=== PATIENT | male | born 1990 | race Hispanic/Latino ===

== ENCOUNTER 2022-08-13 23:08 | Emergency (ER) | payer BC ==
[~2022-08-13] VITALS: Ht 172.7 cm; Wt 117.5 kg
[2022-08-14 00:13] VITALS: BP 110/67
[2022-08-14 00:18] LABS: BASOPHILS % (AUTO) 0.9 % (0.0-5.0); EOSINOPHILS % (AUTO) 1.6 % (0.0-8.0); HEMATOCRIT 47.2 % (42-54); LYMPHOCYTES % (AUTO) 40.4 % (21.0-51.0); MEAN CORPUSCULAR HEMOGLOBIN 27.8 pg (27.0-33.0); MEAN CORPUSCULAR VOLUME 86.8 fL (79-99); MONOCYTES % (AUTO) 7.4 % (3.0-13.0); NEUTROPHILS % (AUTO) 49.5 % (40.0-77.0); PLATELET COUNT (AUTO) 295 K/uL (130-400); RED BLOOD CELL COUNT(AUTO) 5.44 MIL/uL (4.50-6.20); RED CELL DISTRIBUTION WIDTH 13.8 % (11.0-15.5); WHITE BLOOD COUNT (AUTO) 10.5 K/uL (4.8-10.8)
[2022-08-14 00:20] LABS: APPEARANCE,URINE CLEAR (CLEAR); BILIRUBIN,URINE NEGATIVE (NEGATIVE); COLOR,URINE LIGHT-YELLOW (YELLOW); GLUCOSE, URINE (UA) NEGATIVE (NEGATIVE); KETONES,URINE NEGATIVE (NEGATIVE); LEUKOCYTE ESTERASE ,URINE NEGATIVE Leu/uL (NEGATIVE); NITRATE,URINE NEGATIVE (NEGATIVE); OCCULT BLOOD,URINE NEGATIVE (NEGATIVE); PH,URINE 6.5 (5.0-8.0); PROTEIN,URINE NEGATIVE (NEGATIVE); UROBILINOGEN,URINE 0.2 mg/dL (0.2-1.0)
[2022-08-14 00:27] LABS: CREATININE 0.9 mg/dL (0.5-1.5); POTASSIUM 4.1 mmol/L (3.5-5.1)
[2022-08-14 00:31] LABS: ALBUMIN 3.7 g/dL (3.5-5.0); TOTAL PROTEIN, SERUM 8.1 g/dL (6.0-8.3)
[2022-08-14] MEDS ORDERED: FAMOTIDINE 20MG VIAL IV ONE (01:00)
[2022-08-14] MEDS ORDERED: MORPHINE 4 MG SYG IVP ONE (01:00)
[2022-08-14] MEDS ORDERED: ONDANSETRON 4MG INJ IVP ONE (01:00)
[2022-08-14] MEDS ORDERED: LACTATED RINGERS 1000ML 1,000 ML IV ONE (01:00)
[2022-08-14] MEDS ORDERED: POLY17PO4 PO (02:41)
[2022-08-14] MEDS ORDERED: METO-296 PO (02:41)
[2022-08-14] MEDS ORDERED: PANT40TA PO (02:41)
[2022-08-14] MEDS ORDERED: DICYCLOMINE HCL 10 MG/5 ML ML PO SCH (03:00)
[2022-08-14] MEDS ORDERED: PANTOPRAZOLE 40 MG/VIAL IVP ONE (03:00)
[2022-08-14] MEDS ORDERED: MORPHINE 2 MG SYG IVP ONE (03:00)
[2022-08-14] MEDS ORDERED: LIDOCAINE HCL 2% VISCOUS 15 ML UDCUP PO ONE (03:00)
[2022-08-14] MEDS ORDERED: MAG/ALUM/SIMETH 30 ML UDCUP PO ONE (03:00)
== END 2022-08-14 02:58 | disposition home or self-care (01) ==
LOC: EDH 23:08
DX: R10.13 Epigastric pain (principal); K26.9 Duodenal ulcer, unspecified as acute or chronic, without hemorrhage or perforation; Z90.89 Acquired absence of other organs; Z90.49 Acquired absence of other specified parts of digestive tract
CPT/HCPCS: 99284; 82150; 84484; 80053; 83690; 85025; 81003; 36415; 96374; 96375; 76705; 96361; 96376; 93005; J7120; J3490; J2270 ×2; J2405; C9113

== ENCOUNTER 2023-10-09 22:24 | Emergency (ER) | payer BC ==
[~2023-10-09] VITALS: Ht 172.7 cm; Wt 124.7 kg
[~2023-10-09 22:24] MED LIST: METO-296 PO; PANT40TA PO; POLY17PO4 PO
[2023-10-09] MEDS: LACTATED RINGERS 1000ML 1,000 ML IV ONE (22:52)
[2023-10-09 22:55] LABS: BASOPHILS # (AUTO) 0.07 K/uL (0.00-0.20); BASOPHILS % (AUTO) 0.7 % (0.0-5.0); EOSINOPHILS # (AUTO) 0.12 K/uL (0.00-0.70); EOSINOPHILS % (AUTO) 1.2 % (0.0-8.0); HEMATOCRIT 41.6 % (42-54); IMMATURE GRANULOCYTE ABSOLUTE 0.02 K/uL (0-1); LYMPHOCYTES # (AUTO) 3.7 K/uL (1.0-4.8); LYMPHOCYTES % (AUTO) 36.9 % (21.0-51.0); MEAN CORPUSCULAR HEMOGLOBIN 28.5 pg (27.0-33.0); MEAN CORPUSCULAR HGB CONC 33.2 g/dL (32.0-36.0); MONOCYTES # (AUTO) 0.9 K/uL (0.1-1.0); MONOCYTES % (AUTO) 8.7 % (3.0-13.0); NEUTROPHILS # (AUTO) 5.2 K/uL (1.8-7.7); NEUTROPHILS % (AUTO) 52.3 % (40.0-77.0); PLATELET COUNT (AUTO) 324 K/uL (130-400); RED BLOOD CELL COUNT(AUTO) 4.84 MIL/uL (4.50-6.20); RED CELL DISTRIBUTION WIDTH 13.7 % (11.0-15.5); WHITE BLOOD COUNT (AUTO) 9.9 K/uL (4.8-10.8)
[2023-10-09 23:07] LABS: INR 1.03 (0.85-1.15); PROTHROMBIN TIME 11.1 SEC (9.6-11.6)
[2023-10-09 23:12] LABS: POTASSIUM 3.8 mmol/L (3.5-5.1)
[2023-10-09 23:17] LABS: MAGNESIUM 1.9 mg/dL (1.80-2.40)
[2023-10-10 00:27] LABS: APPEARANCE,URINE CLEAR (CLEAR); BILIRUBIN,URINE NEGATIVE (NEGATIVE); COLOR,URINE LIGHT-YELLOW (YELLOW); GLUCOSE, URINE (UA) NEGATIVE (NEGATIVE); KETONES,URINE NEGATIVE (NEGATIVE); LEUKOCYTE ESTERASE ,URINE NEGATIVE Leu/uL (NEGATIVE); NITRATE,URINE NEGATIVE (NEGATIVE); OCCULT BLOOD,URINE NEGATIVE (NEGATIVE); PH,URINE 5.5 (5.0-8.0); PROTEIN,URINE NEGATIVE (NEGATIVE); UROBILINOGEN,URINE 0.2 mg/dL (0.2-1.0)
[2023-10-10 00:32] LABS: ADD UA MICROSCOPIC NO
[2023-10-10 00:37] LABS: AMPHET/METH SCREEN,URINE NEGATIVE (NEGATIVE); BARBITURATE SCREEN, URINE NEGATIVE (NEGATIVE); BENZODIAZEPINES SCREEN,URINE NEGATIVE (NEGATIVE); CANNABINOID SCREEN,URINE NEGATIVE (NEGATIVE); COCAINE SCREEN,URINE NEGATIVE (NEGATIVE); OPIATE SCREEN,URINE NEGATIVE (NEGATIVE); PHENCYCLIDINE SCREEN,URINE NEGATIVE (NEGATIVE)
[2023-10-10] MEDS ORDERED: AMOX1TAB16 PO (00:58)
[2023-10-10] MEDS ORDERED: FLUT16H NASAL (00:58)
[2023-10-10] MEDS: dexaMETHasone SOD PHOSPHATE 4 MG/ML 1ML VIAL IM ONE (01:03)
[2023-10-10 01:05] VITALS: BP 118/73; PULSE 60; RESP 18; TEMP 98; O2SAT 99
== END 2023-10-10 01:13 | disposition home or self-care (01) ==
LOC: EDH 22:24
DX: J32.9 Chronic sinusitis, unspecified (principal); F41.9 Anxiety disorder, unspecified; F17.200 Nicotine dependence, unspecified, uncomplicated; Z79.899 Other long term (current) drug therapy; Z90.49 Acquired absence of other specified parts of digestive tract; Z90.89 Acquired absence of other organs
CPT/HCPCS: 99284; 96360; 70450; 71045; 82550; 83735; 84484; 80048; 80305; 85025; 85610; 36415; 93005; 81003; 96372; J7120; J1100; 96361